=== PATIENT | male | born 1960 | race Caucasian/White ===

== ENCOUNTER 2018-12-14 08:01 | Day surgery (SDC) | payer OTHER ==
[2018-12-09 10:44] VITALS: BMI 29.0
[2018-12-14] MEDS: CIPROFLOXACIN 0.3% EYE DROPS 5 ML BOTTLE ONE ×3 (08:35→08:45)
[2018-12-14] MEDS: PHENYLEPHRINE 2.5% OPHTH SOLN 15 ML BOTTLE ONE ×3 (08:35→08:45)
[2018-12-14] MEDS: TROPICAMIDE 1% OPHTH SOLN 15 ML BOTTLE ONE ×3 (08:35→08:45)
[2018-12-14] MEDS: CYCLOPENTOLATE 2% OPHTH SOLN 2 ML BOTTLE ONE ×3 (08:35→08:45)
[2018-12-14] MEDS ORDERED: MIDAZOLAM HCL 2 MG/2 ML SINGLE DOSE VIAL ONE ×3 (09:38→09:53)
[2018-12-14] MEDS ORDERED: CARBACHOL 0.01% INTRA-OCULAR 1.5 ML VIAL ONE (09:40)
[2018-12-14] MEDS ORDERED: BSS (NA/CA/MG/K) BALANCED SALT SOLUTION OPHTH SOLN 15 ML BOTTLE ONE (09:40)
[2018-12-14] MEDS ORDERED: NEO/POLYMYX B SULF/DEXAMETH OPHTHALMIC 5ML BOTTLE ONE (09:40)
[2018-12-14] MEDS ORDERED: PROPOFOL 20 ML ONE (09:53)
[2018-12-14 10:29] VITALS: TEMP 97.6
--- NOTE | 2018-12-14 11:14 | OP ---
DATE OF OPERATION: 12/14/2018 OPERATIVE PROCEDURE: Lens Phacoemulsification with Posterior Chamber Intraocular Lens Placement, Right Eye PREOPERATIVE DIAGNOSIS: Visually Significant Cataract of Right Eye POSTOPERATIVE DIAGNOSIS: Visually Significant Cataract of Right Eye SURGEON: Jeferson Hansen M.D. ANESTHESIA: MAC PROCEDURE: The patient was brought to the operating room and placed under monitored anesthesia care by Anesthesia. A drop of Tetracaine was then placed over the right eye. The patient was then prepped and draped in the usual sterile manner. A speculum was then placed over the right eye. The eye was then well irrigated with copious amounts of BSS (balanced salt solution). The operating microscope was then moved into position. A paracentesis was performed using a 15 degree blade. At this point 0.5 mL of 1% preservative free-lidocaine was injected into the anterior chamber. Amvisc plus was then injected into the anterior chamber. A clear corneal incision was then formed using a 2.2 mm keratome. A capsulorrhexis was then performed in a continuous circular fashion beginning with a cystotome completed with an Utratas forceps. Hydrodissection was then performed using BSS on a cannula. The phaco probe was then introduced through the corneal wound and the cataract was removed using the phaco chop technique. Approximately 3 seconds of absolute phaco time was used. The remaining cortex was then removed using irrigation and aspiration with an I/A probe. The capsule was then filled with regular Amvisc and the capsule was noted to be intact. A previously selected foldable posterior chamber intraocular lens was then injected into the capsule through the corneal wound using a lens injector. It was then dialed into position using a Sinskey hook. The Amvisc was then removed using irrigation and aspiration. Miostat was then injected through the paracentesis to constrict the pupil. The paracentesis and corneal wound were then hydrated and noted to be water tight. A drop of Maxitrol was then placed over the eye. The speculum was removed and clear shield was taped over the eye. The patient tolerated the procedure well and there were no surgical complications. The patient was asked to follow up in my office the next day. JEFERSON HANSEN M.D. [id number]
[2018-12-14 11:21] VITALS: BP 121/77; PULSE 55
== END 2018-12-14 11:15 | disposition home or self-care (01) ==
LOC: FASU 08:01
PROVIDERS: ATTEND Ophthalmology
PROC: 08RJ3JZ Replacement of Right Lens with Synthetic Substitute, Percutaneous Approach (ICD-10-PCS; principal; 2018-12-14 10:00)
DX: H26.8 Other specified cataract (principal)

== ENCOUNTER 2020-02-07 11:53 | Emergency (ER) | payer OTHER ==
--- NOTE | 2020-02-07 11:57 | PDOC ---
History of Present Illness - General Chief Complaint: Chest Pain Stated Complaint: INTERMITTENT CHEST PAIN OVER 18 HOURS Time Seen by Provider: 02/07/20 11:56 History Source: Patient Exam Limitations: No Limitations - History of Present Illness Initial Comments: 02/07/20 11:56 HPI 59 YOM with h/o HTN, back pain s/p L5-S1 disk replacement, anxiety presenting with intermittent chest pain since yesterday afternoon. Pt describes intermittent left sided chest pain, like "pulling" sensation, nonoexertional and lasts only several seconds. Pt also had fleeting right jaw pain, also fleeting unsure if related to the chest pain. He states he has been feeling "lightheadedness" and noted his heart rate has been slow in the 50s. Pt states he is on losartan and verapamil for HTN management for almost 30 years; recently started on clonidine patch about 4-5 weeks ago, and the dose was titrated up from 0.2 to 0.5mg most recently about 3 weeks ago. currently no chest pain Denies fever, chills, SOB, palpitation, dizziness, weakness, N, V, D, abdominal pain, bladder and bowel problems, focal weakness/paresthesias, leg swelling/pain, rash. Allergies: None Past Medical History/PSH: as above Social history: Lives with family. No tobacco, ETOH or drug use. Meds: as documented in EMR Family history: noncontributory PMD: Dr Rodríguez Review of systems Constitutional: no fevers or chills. No weakness HEENT: no headache or dizziness. No congestion. No visual/hearing disturbances. CVS: no syncope. +chest pain Resp: no sob. No cough. Gastrointestinal: no abdominal pain, nausea, vomiting, diarrhea. MUSCULOSKELETAL: No joint pain and swelling. No neck or back pain. SKIN: no redness or skin changes, no discharge, no rash. No wounds. Hematologic: no easy bruising/bleeding. NEUROLOGIC: No headache, dizziness, LOC or altered mental status. No weakness, numbness or tingling. Psych: no anxiety or depression Allergic/Immunologic: no allergies All other systems reviewed and negative, or as documented in HPI. Physical exam General: Well appearing, awake and alert, NAD. HEENT: NCAT, PERRL, EOMI, clear conjunctiva, anicteric, moist mucus membranes, clear oropharynx, no oral lesions.. Neck: neck supple, FROM Resp: CTAB, normal and even respirations, no respiratory distress CVS: +bradycardic, no murmurs, 2+ peripheral pulses throughout, no peripheral edema Abdomen: soft, NTND, no rebound or guarding. Back: nontender, normal inspection and ROM MSK: no edema, FOFANA x4, ROM intact. No clubbing or cyanosis. normal bulk and tone. Extremities: no calf tenderness Neuro: alert, oriented appropriately; no focal neurologic deficits Psych: Calm and cooperative, mildly anxious Skin: warm and well perfused, cap refill <2 sec, normal color, no rash or skin discoloration. 02/07/20 12:33 Past History - Medical History Allergies/Adverse Reactions: Allergies Allergy/AdvReac Type Severity Reaction Status Date / Time No Known Allergies Allergy Verified 02/07/20 12:14 Home Medications: Ambulatory Orders Verapamil HCl ER [Calan Sr -] 240 mg PO DAILY 06/25/11 Verapamil HCl [Verapamil ER] 180 mg PO HS 12/09/18 Alprazolam [Xanax] 0.5 mg PO PRN 02/07/20 Clonidine Patch [Catapres Tts Patch -] 0.1 mg TD WEEKLY 02/07/20 Losartan Potassium 50 mg PO DAILY 02/07/20 Anemia: No Asthma: No Cancer: No Cardiac Disorders: No CVA: No COPD: No CHF: No Dementia: No Diabetes: No GI Disorders: No Disorders: Yes (ERECTILE DYSFUNCTION) HTN: Yes Hypercholesterolemia: Yes Liver Disease: No Psychiatric Problems: Yes Seizures: No Thyroid Disease: No - Surgical History Abdominal Surgery: No Appendectomy: No Cardiac Surgery: No Cholecystectomy: No Lung Surgery: No Neurologic Surgery: No Orthopedic Surgery: Yes (L5-S1 LAMINECTOMY 2003) - Immunization History Td Vaccination: Yes TDAP Vaccination: Yes Immunization Up to Date: Yes - Psycho-Social/Smoking History Smoking Status: No Smoking History: Never smoked Have you smoked in the past 12 months: No Number of Cigarettes Smoked Daily: 0 Cardiac Specific PMH - Complaint Specific PMHX Pacemaker: No *Physical Exam - Vital Signs Last Vital Signs Temp Pulse Resp BP Pulse Ox 98.4 F 52 L 16 135/85 99 02/07/20 11:54 02/07/20 12:53 02/07/20 12:53 02/07/20 12:13 02/07/20 12:53 Heart Score/ECG Review - History History: Slightly suspicious - Electrocardiogram EKG: Normal - Age Age: 45-65 - Risk Factors Risk Factors Heart Score: Yes Hx Hypertension Based on the list above the patient has:: 1-2 risk factors - Troponin Troponin: </= normal limit - Score Heart Score - Total: 2 #1 ECG reviewed & interpreted by me at: 11:55 General ECG Interpretation: Sinus Rhythm, Normal Intervals 02/07/20 11:56 EKG sinus bradycardia 52 bpm, no interval abnormalities, narrow QRS, ST and T wave segments and morphology normal. ED Treatment Course - LABORATORY CBC & Chemistry Diagram: 02/07/20 12:29 02/07/20 12:29 - ADDITIONAL ORDERS Additional order review: Laboratory Results 02/07/20 02/07/20 12:29 12:29 Sodium 138 Potassium 3.8 Chloride 105 Carbon Dioxide 26 Anion Gap 7 L BUN 19.0 H Creatinine 0.9 Est GFR (CKD-EPI)AfAm 107.97 Est GFR (CKD-EPI)NonAf 93.16 Random Glucose 92 Calcium 8.8 Total Bilirubin 0.7 AST 15 ALT 24 Alkaline Phosphatase 83 Creatine Kinase 78 Troponin I < 0.03 Total Protein 6.7 Albumin 3.8 02/07/20 12:29 RBC 4.42 MCV 91.0 MCHC 33.8 RDW 12.4 MPV 9.8 Neutrophils % 72.2 Lymphocytes % 19.4 Monocytes % 6.4 Eosinophils % 1.4 Basophils % 0.6 - RADIOLOGY Radiology Studies Ordered: Category Date Time Status CHEST PA & LAT [RAD] Stat Radiology 02/07/20 12:22 Completed Medical Decision Making - Medical Decision Making 02/07/20 12:36 Vital Signs Temp Pulse Resp BP Pulse Ox 98.4 F 56 L 18 135/85 100 02/07/20 11:54 02/07/20 12:13 02/07/20 11:54 02/07/20 12:13 02/07/20 11:54 DDx chest pain: ACS, coronary vasospasm, NSTEMI, arrhythmia, unstable angina, PE, dissection, PUD, esophageal spasm, GERD, gastritis, costochondritis, pneum onia, pleurisy, pericarditis/myocarditis. dehydration, electrolyte/metabolic derangements, anxiety. Considered but clinically doubt based on HPI and PE: Low suspicion for pulmonary embolism or dissection. Interpreted by ED Physician: CXR (2 view): no acute abnormality: no infiltrates, bones appear intact and structures normal alignment, cardiac silhouette within normal limits. no free air under diaphragm, no pneumothorax. EKG normal sinus rhythm with bradycardia, no interval abnormalities, narrow QRS, ST and T wave segments and morphology normal. Chest pain HEART score 2 which denotes, Low risk and probability for ACS, less than 1.7% risk for MACE at 4-6 wks most likely polypharmacy effect, is on clonidine and verapamil that can cause bradycardia no high risk sx. no syncope or neuro changes, no HD instability, no AMS. no e/o shock. no symptoms currently, no cp or sob. labs and lytes wnl, neg trop, reassuring VS remain wnl, HD appropriate. no events on monitor, no dysrhythmias, has shown sinus bradycardic and remains asymptomatic. likely the medication effects of alpha 2 agonist (clonidine newest medication PMD gave to control BP) and CCB. No evidence of ACS, pericarditis, myocarditis, pulmonary embolism, pneumothorax, pneumonia, Zoster, or esophageal perforation. Historically not abrupt in onset, tearing or ripping, pulses symmetric, no evidence of aortic dissection. 02/07/20 13:10 Pt to be discharged in stable condition. Patient made aware of clinical impression, treatment recommendations and disposition plan, return precautions discussed (including but not limited to new or persistent/worsening symptoms, pain, fevers, or signs of infection, chest pain, respiratory distress, inability to tolerate oral intake, dehydration, syncope, or neurologic changes). Follow up with PMD and/or cards specialist as recommended, follow up information provided, take medications as instructed for duration of time. continue with supportive care, avoid triggers and precipitants. All questions answered to patient's satisfaction and expressed understanding and comfort with this. At the time of discharge, the patient is alert, clinically improved, tolerating po and verbalizes understanding of instructions, satisfied with the care received and felt comfortable with the plan. Patient does not suffer from an acute life- threatening medical condition at this time and is safe for outpatient follow- up. 02/07/20 13:13 02/07/20 13:14 02/07/20 13:14 Discharge - Discharge Information Problems reviewed: Yes Clinical Impression/Diagnosis: Chest pain, Medication side effect, Bradycardia Condition: Stable Disposition: HOME - Admission No - Follow up/Referral Referrals: Maximo Rodríguez MD [Primary Care Provider] - Eduardo Heath MD [Staff Physician] - Moreno Almaraz MD [Staff Physician] - - Patient Discharge Instructions Patient Printed Discharge Instructions: DI for Chest Pain Additional Instructions: 1) Please follow-up with your primary care doctor in the next 1-2 days. Please call tomorrow for for any urgent issues. cardiology referrals have been given as well 2) You were given a copy of the tests performed today. Please bring the results with you and review them with your primary care doctor. Your laboratory / imaging results were normal, you have a low heart rate that could be related to multiple medications you are taking for your blood pressure 3) If you have any worsening of symptoms or any other concerns please return to the ED immediately. Return if worsening symptoms including fevers, headache, vomiting, visual or hearing disturbances, abdominal pain, chest pain, shortness of breath, syncope, dehydration, inability to take things by mouth/vomiting, altered mental status, or worsening concerning symptoms. 4) Please continue taking your home medications as directed. diet and exercise are also appropriate modifications to control your blood pressure Stay well hydrated and rest adequately. Make an appointment. If you cannot follow-up with your primary care doctor please return to the ED - Post Discharge Activity
[2020-02-07 12:27] VITALS: BP 135/85; TEMP 98.4; BMI 27.8
[2020-02-07 12:53] VITALS: PULSE 52
[2020-02-07 12:57] LABS: BASO % 0.6 % (0-2.0); EOS % 1.4 % (0-4.5); HEMATOCRIT 40.2 % (35.4-49); HEMOGLOBIN 13.6 GM/dl (11.7-16.9); LYMPH % 19.4 % (8-40); MCH 30.8 pg (25.7-33.7); MCHC 33.8 g/dl (32.0-35.9); MEAN PLT VOLUME 9.8 fl (7.5-11.1); MONO % 6.4 % (3.8-10.2); NEUT % 72.2 % (42.8-82.8); PLATELET COUNT 233 K/MM3 (134-434); RBC 4.42 M/mm3 (4.00-5.60); RDW 12.4 % (11.9-15.9); WHITE BLOOD COUNT 7.5 K/mm3 (4.0-10.8)
[2020-02-07 13:00] LABS: ALBUMIN 3.8 g/dl (3.4-5.0); BILIRUBIN,TOTAL 0.7 mg/dl (0.2-1); CALCIUM 8.8 mg/dl (8.5-10); CREATININE 0.9 mg/dl (0.55-1.3); POTASSIUM 3.8 mmol/L (3.5-5.1); TOT PROT 6.7 g/dl (6.4-8.2)
--- NOTE | 2020-02-08 15:30 | EKG ---
Test Reason : Blood Pressure : / mmHG Vent. Rate : 052 BPM Atrial Rate : 052 BPM P-R Int : 176 ms QRS Dur : 088 ms QT Int : 454 ms P-R-T Axes : 020 008 032 degrees QTc Int : 422 ms SINUS BRADYCARDIA OTHERWISE NORMAL ECG WHEN COMPARED WITH ECG OF 01-JUL-2004 20:24, NO SIGNIFICANT CHANGE WAS FOUND Confirmed by BALBINA FONSECA MD ([id number]) on 02/08/2020 3:29:23 PM Referred By: CHRISSIE FERNANDEZ Confirmed By:BALBINA FONSECA MD
== END 2020-02-07 13:27 | disposition home or self-care (01) ==
LOC: FER 11:53
DX: R07.9 Chest pain, unspecified (principal)
CPT/HCPCS: 36415; 71046-TC-FY; 80053; 82550; 84484; 85025; 93005; 99285-25; U0003

== ENCOUNTER 2020-02-15 12:52 | Emergency (ER) | payer OTHER ==
[2020-02-15] MEDS ORDERED: morphine CARPU-JECT 4 MG/1 ML DISP.SYRIN IVPUSH ONE ×2 (13:13→15:27)
[2020-02-15] MEDS ORDERED: SODIUM CHLORIDE 0.9% 1000 ML INFUS.BAG IV ONE (13:13)
[2020-02-15 13:25] VITALS: BP 122/72; PULSE 65; TEMP 98.2; BMI 23.1
[2020-02-15] MEDS ORDERED: ACETAMINOPHEN INJECTION 100 ML IVPB ONE (13:33)
[2020-02-15] MEDS ORDERED: ACETAMINOPHEN 1000 MG/100 ML VIAL (NON FORMULARY) IVPB ONE (13:33)
[2020-02-15 13:44] LABS: BASO % 0.3 % (0-2.0); EOS % 0.1 % (0-4.5); HEMATOCRIT 43.6 % (35.4-49); HEMOGLOBIN 14.8 GM/dl (11.7-16.9); LYMPH % 10.5 % (8-40); MCH 30.5 pg (25.7-33.7); MCHC 33.9 g/dl (32.0-35.9); MEAN PLT VOLUME 9.1 fl (7.5-11.1); MONO % 3.3 % (3.8-10.2); NEUT % 85.8 % (42.8-82.8); PLATELET COUNT 290 K/MM3 (134-434); RBC 4.84 M/mm3 (4.00-5.60); RDW 12.2 % (11.9-15.9); WHITE BLOOD COUNT 13.7 K/mm3 (4.0-10.8)
[2020-02-15 13:52] LABS: ALBUMIN 4.3 g/dl (3.4-5.0); BILIRUBIN,TOTAL 0.8 mg/dl (0.2-1); CREATININE 0.9 mg/dl (0.55-1.3); POTASSIUM 3.5 mmol/L (3.5-5.1); TOT PROT 7.7 g/dl (6.4-8.2)
[2020-02-15 13:54] LABS: INR 1.12 (0.82-1.09); PROTHROMBIN TIME (PATIENT) 12.5 SEC (10.2-13.0)
--- NOTE | 2020-02-15 13:59 | PDOC ---
History of Present Illness - General Chief Complaint: Pain Stated Complaint: LEFT ABD PAIN Time Seen by Provider: 02/15/20 12:56 History Source: Patient Exam Limitations: No Limitations - History of Present Illness Initial Comments: 02/15/20 13:56 59-year-old male history of hypertension anxiety here today complaining of constipation for the last few days. Patient states he did try a laxative with minimal relief and then tried an enema last night following the enema he noticed some one loose stool with red particles he was unsure if it was blood or food particles now complaining of left-sided abdominal pain. Denies any nausea no fevers no chills no known history of diverticulitis no urinary complaints no history of similar symptoms in the past patient is states pain is constant but does have waves where it slightly worse Past History - Medical History Allergies/Adverse Reactions: Allergies Allergy/AdvReac Type Severity Reaction Status Date / Time No Known Allergies Allergy Verified 02/15/20 12:53 Home Medications: Ambulatory Orders Verapamil HCl ER [Calan Sr -] 240 mg PO DAILY 06/25/11 Verapamil HCl [Verapamil ER] 180 mg PO HS 12/09/18 Alprazolam [Xanax] 0.5 mg PO PRN 02/07/20 Clonidine Patch [Catapres Tts Patch -] 0.1 mg TD WEEKLY 02/07/20 Losartan Potassium 50 mg PO DAILY 02/07/20 Ciprofloxacin [Cipro -] 500 mg PO Q12H #14 tablet 02/15/20 metroNIDAZOLE [Flagyl -] 500 mg PO TID #7 tablet MDD 3 02/15/20 Oxycodone HCl [Roxicodone] 5 mg PO BID PRN #4 tablet MDD 2 02/18/20 Anemia: No Asthma: No Cancer: No Cardiac Disorders: No CVA: No COPD: No CHF: No Dementia: No Diabetes: No GI Disorders: No Disorders: Yes (ERECTILE DYSFUNCTION) HTN: Yes Hypercholesterolemia: Yes Liver Disease: No Psychiatric Problems: Yes Seizures: No Thyroid Disease: No Other medical history: ANXIETY - Surgical History Abdominal Surgery: No Appendectomy: No Cardiac Surgery: No Cholecystectomy: No Lung Surgery: No Neurologic Surgery: No Orthopedic Surgery: Yes (L5-S1 LAMINECTOMY 2003) - Immunization History Td Vaccination: Yes TDAP Vaccination: Yes Immunization Up to Date: Yes - Psycho-Social/Smoking History Smoking Status: No Smoking History: Never smoked Have you smoked in the past 12 months: No Number of Cigarettes Smoked Daily: 0 Information on smoking cessation initiated: No - Substance Abuse Hx (Audit-C & DAST Scrn) How often the patient has a drink containing alcohol: Never Score: In Men: 4 or > Positive; In Women: 3 or > Positive: 0 Screen Result (Pos requires Nsg. Audit-10AR): Negative In the last yr the pt used illegal drug/Rx for NonMed reason: No Score: Yes response is considered Positive: 0 Screen Result (Positive result requires Nsg. DAST-10): Negative Review of Systems - Review of Systems Constitutional: No: Diaphoresis, Fever HEENTM: No: Eye Pain Respiratory: No: Cough, Shortness of Breath Cardiac (ROS): No: Chest Pain ABD/GI: Yes: Constipated, Diarrhea, Nausea, Abdominal cramping : No: Burning, Dysuria, Discharge Musculoskeletal: No: Back Pain, Joint Pain All Other Systems: Reviewed and Negative *Physical Exam - Vital Signs Last Vital Signs Temp Pulse Resp BP Pulse Ox 98.2 F 65 20 122/72 98 02/15/20 12:52 02/15/20 12:52 02/15/20 12:52 02/15/20 12:52 02/15/20 12:52 - Physical Exam 02/15/20 13:58 Awake alert no acute distress lungs are clear bilaterally heart is regular 30 murmurs rubs or gallops abdomen is soft there is left mid quadrant tenderness no rebound or guarding no CVA tenderness. Rectal exam palpable internal hemorrhoids there is some blood mucus no stool noted in the vault extremities are warm well perfused neurologically patient is awake alert and oriented x3 ED Treatment Course - LABORATORY CBC & Chemistry Diagram: 02/15/20 13:25 02/15/20 13:25 - ADDITIONAL ORDERS Additional order review: Laboratory Results 02/15/20 02/15/20 02/15/20 13:25 13:25 13:25 Sodium 133 L Potassium 3.5 Chloride 100 Carbon Dioxide 25 Anion Gap 8 BUN 15.0 Creatinine 0.9 Est GFR (CKD-EPI)AfAm 107.97 Est GFR (CKD-EPI)NonAf 93.16 Random Glucose 121 H Calcium 9.0 Total Bilirubin 0.8 AST 18 ALT 19 Alkaline Phosphatase 89 Total Protein 7.7 Albumin 4.3 Urine Color Yellow Urine Appearance Clear Urine pH 5.5 Urine Protein Negative Urine Glucose (UA) Negative Urine Ketones Negative Urine Blood Trace-intact Urine Nitrite Negative Urine Bilirubin Negative Urine Urobilinogen 0.2 Ur Leukocyte Esterase Negative Stool Occult Blood Negative 02/15/20 13:25 RBC 4.84 MCV 90.0 MCHC 33.9 RDW 12.2 MPV 9.1 Neutrophils % 85.8 H Lymphocytes % 10.5 D Monocytes % 3.3 L Eosinophils % 0.1 D Basophils % 0.3 - RADIOLOGY Radiology Studies Ordered: Category Date Time Status ABDOMEN & PELVIS CT WITH CONTR [CT] Stat CT Scan 02/15/20 13:13 Ordered - Medications Given in the ED: ED Medications Discontinued Medications Generic Name Dose Route Start Last Admin Trade Name Carolyn PRN Reason Stop Dose Admin Acetaminophen 1,000 mg 02/15/20 13:33 02/15/20 13:36 Ofirmev Injection - IVPB 02/15/20 13:34 1,000 mg ONCE ONE Administration Sodium Chloride 1,000 ml 02/15/20 13:13 02/15/20 13:36 Normal Saline - IV 02/15/20 13:14 1,000 ml ONCE ONE Administration Medical Decision Making - Medical Decision Making 02/15/20 13:58 59-year-old male history of hypertension anxiety here today complaining of few days of constipation now with blood mixed with stool following an enema and left-sided lower quadrant pain. Differential includes colitis, internal hemorrhoids, diverticulitis diverticulosis plan CT abdomen pelvis basic labs IV fluids Tylenol for pain control UA to rule out UTI or pyelonephritis Discharge - Discharge Information Problems reviewed: Yes Clinical Impression/Diagnosis: Colitis Condition: Improved Disposition: HOME - Admission No - Additional Discharge Information Prescriptions: Ciprofloxacin [Cipro -] 500 mg PO Q12H #14 tablet metroNIDAZOLE [Flagyl -] 500 mg PO TID #7 tablet MDD 3 - Follow up/Referral Referrals: Carlos Arriaza MD [Staff Physician] - - Patient Discharge Instructions Patient Printed Discharge Instructions: DI for Colitis Additional Instructions: Jonelo your CAT scan today shows acute colitis or inflammation of the colon. This is possibly related to bacterial versus viral infection we will treat you with an antibiotic called ciprofloxacin 500 mg to be taken twice daily for 1 week in addition you can take Flagyl antibiotic 500 mg 3 times daily for 1 week he should follow-up with Dr. Arriaza a method consultant or your own method consultant if you have 1. See referral information for phone number call to schedule to be seen within 1 week you should also follow-up with your primary care doctor and at the earliest available. Return for vomiting worsening symptoms fevers or any other concerns he should stick to a bland diet liquids initially advancing as your pain is improved - Post Discharge Activity
[2020-02-15 14:19] LABS: EPITHELIAL CELLS RARE /hpf
[2020-02-15] MEDS ORDERED: morphine SULFATE 4 MG/ML VIAL ONE (15:24)
[2020-02-15] MEDS ORDERED: CIPROFLOXACIN 500 MG TABLET (RESTRICTED TO ID) PO ONE (18:02)
[2020-02-15] MEDS ORDERED: metroNIDAZOLE 250 MG TABLET PO ONE (18:02)
[2020-02-15] MEDS ORDERED: metroNIDAZOLE 250 MG TABLET ONE (18:05)
[2020-02-15] MEDS ORDERED: CIPROFLOXACIN 250 MG TABLET (RESTRICTED TO ID) PO ONE (18:05)
== END 2020-02-15 18:22 | disposition home or self-care (01) ==
LOC: FER 12:52
PROC: 3E033NZ Introduction of Analgesics, Hypnotics, Sedatives into Peripheral Vein, Percutaneous Approach (ICD-10-PCS; principal; 2020-02-15)
PROC: 3E033GC Introduction of Other Therapeutic Substance into Peripheral Vein, Percutaneous Approach (ICD-10-PCS; 2020-02-15)
DX: K52.9 Noninfective gastroenteritis and colitis, unspecified (principal)
CPT/HCPCS: 36415; 74177-TC; 80053; 81003; 81015; 82272; 85025; 85610; 85730; 99285-25; J0131; Q9967

== ENCOUNTER 2020-02-18 02:10 | Emergency (ER) | payer OTHER ==
[2020-02-18 02:19] VITALS: BP 124/89; PULSE 74; TEMP 99.1; BMI 23.1
[2020-02-18] MEDS ORDERED: KETOROLAC TROMETHAMINE 30 MG/1 ML VIAL IM ONE (02:29)
[2020-02-18] MEDS ORDERED: ACETAMINOPHEN 500 MG TABLET (FP) PO ONE (02:31)
[2020-02-18] MEDS ORDERED: KETOROLAC TROMETHAMINE 30 MG/1 ML VIAL ONE (02:32)
[2020-02-18] MEDS ORDERED: ACETAMINOPHEN 325 MG TABLET (FP) ONE (02:32)
--- NOTE | 2020-02-18 02:38 | PDOC ---
History of Present Illness - General Chief Complaint: Pain, Acute Stated Complaint: ABD PAIN Time Seen by Provider: 02/18/20 02:19 History Source: Patient Exam Limitations: No Limitations - History of Present Illness Initial Comments: 02/18/20 02:31 [id number] with h/o HTN, anxiety, and recently diagnosed transverse colitis (ED visit on 02/15/20) for which he has been taking his antibiotics exactly as prescribed, who p/w continued LUQ pain which he notes is persisting at the same intensity as his prior visit, kept him from sleeping tonight. Denies any f/c/n/v/d, small amount of constipation but still having small BMs and passing gas, has not been eating a large amount of food. He requests stronger pain medication to get him through the weekend. He has tried Tylenol at home but no Motrin. Past History - Medical History Allergies/Adverse Reactions: Allergies Allergy/AdvReac Type Severity Reaction Status Date / Time No Known Allergies Allergy Verified 02/15/20 12:53 Home Medications: Ambulatory Orders Verapamil HCl ER [Calan Sr -] 240 mg PO DAILY 06/25/11 Verapamil HCl [Verapamil ER] 180 mg PO HS 12/09/18 Alprazolam [Xanax] 0.5 mg PO PRN 02/07/20 Clonidine Patch [Catapres Tts Patch -] 0.1 mg TD WEEKLY 02/07/20 Losartan Potassium 50 mg PO DAILY 02/07/20 Ciprofloxacin [Cipro -] 500 mg PO Q12H #14 tablet 02/15/20 metroNIDAZOLE [Flagyl -] 500 mg PO TID #7 tablet MDD 3 02/15/20 Oxycodone HCl [Roxicodone] 5 mg PO BID PRN #4 tablet MDD 2 02/18/20 Anemia: No Asthma: No Cancer: No Cardiac Disorders: No CVA: No COPD: No CHF: No Dementia: No Diabetes: No GI Disorders: Yes (COLITIS) Disorders: Yes (ERECTILE DYSFUNCTION) HTN: Yes Hypercholesterolemia: Yes Liver Disease: No Psychiatric Problems: Yes Seizures: No Thyroid Disease: No - Surgical History Abdominal Surgery: No Appendectomy: No Cardiac Surgery: No Cholecystectomy: No Lung Surgery: No Neurologic Surgery: No Orthopedic Surgery: Yes (L5-S1 LAMINECTOMY 2003) - Immunization History Td Vaccination: Yes TDAP Vaccination: Yes Immunization Up to Date: Yes - Psycho-Social/Smoking History Smoking Status: No Smoking History: Never smoked Have you smoked in the past 12 months: No Number of Cigarettes Smoked Daily: 0 Review of Systems - Review of Systems Able to Perform ROS?: Yes Comments:: 02/18/20 02:43 GEN: no fever, chills, malaise, or generalized weakness HEENT: no ear pain, congestion, sore throat, vision change, or eye pain CV: no chest pain, palpitations, lightheadedness, syncope, or edema RESP: no SOB, wheezing, or cough GI: abdominal pain, mild constipation, no nausea, vomiting, diarrhea, or rectal bleed : no dysuria, hematuria, or discharge MSK: no muscle weakness or pain, no joint swelling or pain NEURO: no headache, vertigo, numbness, tingling, or focal weakness PSYCH: no SI, HI, or behavior change SKIN: no jaundice, rash, lesions, or unexplained bruises ROS otherwise negative except as noted in HPI *Physical Exam - Vital Signs Last Vital Signs Temp Pulse Resp BP Pulse Ox 99.1 F 74 18 124/89 99 02/18/20 02:14 02/18/20 02:14 02/18/20 02:14 02/18/20 02:14 02/18/20 02:14 - Physical Exam 02/18/20 02:43 GENERAL: well-appearing, anxious, A/Ox4, no distress, answers questions appropriately HEENT: PERRLA, EOMI, moist mucous membranes NECK/BACK: no midline ttp, no spinal step-off or deformity, no hematoma, full ROM, neck supple CARDIOVASCULAR: regular rate/rhythm, no MGR, strong peripheral pulses, capillary refill <2 seconds, extremities wwp, no edema LUNGS/RESPIRATORY: no respiratory distress, CTAB GI/ABDOMEN: symmetric grms-bp-oali, normoactive BS, soft, mild LUQ ttp without guarding or rebound, no midline pulsatile masses, normoactive bowel sounds : no CVA tenderness MSK/EXTREMITIES: no muscle atrophy, no acute deformity SKIN: warm and dry, no pallor, no jaundice, no rash, no pathologic-appearing br uising, no skin breakdown, no cuts, no lesions NEUROLOGICAL: GCS 15, CN II-XII grossly intact, 5/5 strength proximally and distally, no facial droop Medical Decision Making - Medical Decision Making 02/18/20 02:44 [id number] with recently diagnosed colitis now on abx and taking them adherently, who p/w persistent LUQ abdominal pain with mild constipation, without any systemic symptoms (no f/c/n/v, diarrhea, back pain, or other symptoms). States he is here because the pain has kept him from sleeping tonight, requests something stronger than Tylenol. Unfortunately he drove himself, but I inform him we can give Tylenol and IM Toradol here, and give him a clear regimen for Tylenol and Motrin at home, then send him a few pills of oxycodone to his pharmacy in case he needs it today and tomorrow. He is agreeable and will continue to take the abx exactly as prescribed, will come back for any new or worsening symptoms especially worsening pain or change in character of the pain, or f/c/n/v. Repeat exam is benign with pain well controlled after Tylenol and Toradol, and he is appropriate for discharge home. Referral info for GI given. Discharge - Discharge Information Problems reviewed: Yes Clinical Impression/Diagnosis: Colitis Condition: Stable Disposition: HOME - Admission No - Additional Discharge Information Prescriptions: Oxycodone HCl [Roxicodone] 5 mg PO BID PRN #4 tablet MDD 2 PRN Reason: Pain Level 4 - 6 - Follow up/Referral Referrals: Maximo Rodríguez MD [Primary Care Provider] - Kushal Stinson MD [Staff Physician] - - Patient Discharge Instructions Patient Printed Discharge Instructions: DI for Colitis Additional Instructions: You were seen in the ER for pain from your colitis. We gave you pain medications in the ER which did help. 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 Please follow up with your regular PCP on Wednesday. Call their clinic, tell them you were seen in the ER, and tell them you need a follow-up. You also likely need a follow-up colonoscopy after the symptoms have resolved, in 6-8 weeks, and you should call a application coordinator now to set up this appointment. For the next 48 hours, you should be on a clear-liquids diet (water, electrolyte drinks, broth, etc.). After that, go on a BRAT diet (bananas, rice, applesauce, toast) for the following 48 hours, then slowly reintroduce normal foods as you are able. If you have any new or worsening symptoms, please come back to the ER at any time (24 hours a day). Especially come back for large amounts of rectal bleeding, worsening pain, or worsening fever, vomiting, inability to keep down liquids, dehydration, fainting, or other concerning emergency symptoms. If you are having severe or life threatening symptoms, or symptoms that make it unsafe to drive or have someone drive you, please call 911. Tylenol/Motrin Regimen: When you wake up in the morning, take Tylenol 650 mg. 3 hours after that, take Motrin 600 mg. 3 hours after that, take Tylenol 650 mg. 3 hours after that, take Motrin 600 mg. Etc. - Post Discharge Activity
== END 2020-02-18 02:54 | disposition home or self-care (01) ==
LOC: FER 02:10
PROC: 3E0233Z Introduction of Anti-inflammatory into Muscle, Percutaneous Approach (ICD-10-PCS; principal; 2020-02-18)
DX: K59.2 Neurogenic bowel, not elsewhere classified (principal)
CPT/HCPCS: 99284-25

== ENCOUNTER 2021-06-07 12:38 | Emergency (ER) | payer OTHER ==
[2021-06-07] MEDS ORDERED: MECLIZINE HCL 25 MG TABLET (FP) PO ONE (13:42)
[2021-06-07 13:48] LABS: ALBUMIN 3.9 g/dl (3.4-5.0); BILIRUBIN,TOTAL 0.4 mg/dl (0.2-1); CALCIUM 9.3 mg/dl (8.5-10); TOT PROT 6.7 g/dl (6.4-8.2)
[2021-06-07] MEDS ORDERED: MECLIZINE HCL 25 MG TABLET (FP) ONE (13:55)
[2021-06-07 15:05] LABS: BASO % 0.9 % (0-2.0); EOS % 2.3 % (0-4.5); HEMOGLOBIN 13.8 GM/dL (11.7-16.9); LYMPH % 23.8 % (8-40); MCH 29.1 pg (25.7-33.7); MCHC 32.8 g/dl (32.0-35.9); MEAN CELL VOLUME 88.6 fl (80-96); MEAN PLT VOLUME 9.8 fl (7.5-11.1); MONO % 7.3 % (3.8-10.2); NEUT % 65.7 % (42.8-82.8); PLATELET COUNT 240 10^3/uL (134-434); RBC 4.74 M/mm3 (4.00-5.60)
[2021-06-09 17:08] LABS: SARS-CoV-2 NAA Not Detected (Not Detected)
== END 2021-06-07 16:25 | disposition home or self-care (01) ==
LOC: FER 12:38
DX: R42 Dizziness and giddiness (principal)
CPT/HCPCS: 36415; 80053; 84484; 85025; 93005; 99281-25; C9803; U0003; U0005

== ENCOUNTER 2021-11-01 05:25 | Emergency (ER) | payer OTHER ==
[2021-11-01 05:41] VITALS: BMI 26.9
[2021-11-01] MEDS ORDERED: SODIUM CHLORIDE 1,000 ML IV ONE (05:54)
[2021-11-01] MEDS ORDERED: morphine CARPU-JECT 2 MG/1 ML DISP.SYRIN IVPUSH ONE (05:54)
[2021-11-01] MEDS ORDERED: morphine SULFATE 4 MG/ML VIAL ONE (05:59)
[2021-11-01 07:01] LABS: BASO % 1.1 % (0-2.0); HEMOGLOBIN 13.9 GM/dL (11.7-16.9); LYMPH % 28.5 % (8-40); MCH 30.6 pg (25.7-33.7); MCHC 34.8 g/dl (32.0-35.9); MEAN CELL VOLUME 87.9 fl (80-96); MEAN PLT VOLUME 9.4 fl (7.5-11.1); MONO % 6.2 % (3.8-10.2); NEUT % 61.2 % (42.8-82.8); PLATELET COUNT 232 10^3/uL (134-434); RBC 4.55 M/mm3 (4.00-5.60); RDW 12.6 % (11.9-15.9); WHITE BLOOD COUNT 7.6 K/mm3 (4.0-10.0)
[2021-11-01 07:02] LABS: URINE APPEARANCE CLEAR; URINE BILIRUBIN NEGATIVE (NEGATIVE); URINE COLOR YELLOW; URINE GLUCOSE (UA) NEGATIVE (NEGATIVE); URINE KETONE NEGATIVE (NEGATIVE); URINE LEUK ESTERASE NEGATIVE (NEGATIVE); URINE NITRITE NEGATIVE (NEGATIVE); URINE PROTEIN NEGATIVE (NEGATIVE); URINE UROBILINOGEN 0.2 mg/dL (0.2-1.0)
[2021-11-01 08:32] LABS: ALBUMIN 3.9 g/dl (3.4-5.0); BILIRUBIN,TOTAL 0.3 mg/dL (0.2-1); BLOOD UREA NITROGEN 14.6 mg/dL (7-18); CHLORIDE 105 mmol/L (98-107); CO2 30 mmol/L (21-32); CREATININE 0.9 mg/dL (0.55-1.3); GLUCOSE,RANDOM 92 mg/dL (74-106); SGOT/AST 25 U/L (15-37); SODIUM 141 mmol/L (136-145)
[2021-11-01 08:33] LABS: ALK PHOS 102 U/L (45-117); SGPT/ALT 56 U/L (13-61)
[2021-11-01 10:44] VITALS: BP 144/88; PULSE 63; TEMP 98.8
== END 2021-11-01 11:10 | disposition home or self-care (01) ==
LOC: FER 05:25
PROC: 3E033NZ Introduction of Analgesics, Hypnotics, Sedatives into Peripheral Vein, Percutaneous Approach (ICD-10-PCS; principal; 2021-11-01)
PROC: 3E0337Z Introduction of Electrolytic and Water Balance Substance into Peripheral Vein, Percutaneous Approach (ICD-10-PCS; 2021-11-01)
DX: R10.32 Left lower quadrant pain (principal)
CPT/HCPCS: 36415; 74177-TC; 80053; 81003; 85025; 99285-25; Q9967

== ENCOUNTER 2021-12-11 02:35 | Emergency (ER) | payer OTHER ==
[2021-12-11 02:50] VITALS: BP 159/97; PULSE 67; TEMP 97.5; BMI 25.9
[2021-12-11 03:48] LABS: BASO % 1.2 % (0-2.0); EOS % 2.7 % (0-4.5); HEMATOCRIT 39.2 % (35.4-49); HEMOGLOBIN 13.6 GM/dL (11.7-16.9); MCH 30.7 pg (25.7-33.7); MCHC 34.8 g/dl (32.0-35.9); MEAN CELL VOLUME 88.3 fl (80-96); MEAN PLT VOLUME 8.8 fl (7.5-11.1); MONO % 6.5 % (3.8-10.2); NEUT % 69.6 % (42.8-82.8); PLATELET COUNT 221 10^3/uL (134-434); RBC 4.44 M/mm3 (4.00-5.60); RDW 13.1 % (11.9-15.9); WHITE BLOOD COUNT 7.7 K/mm3 (4.0-10.0)
[2021-12-11 03:59] LABS: INR 1.01 (0.83-1.09); PROTHROMBIN TIME (PATIENT) 11.6 SEC (9.7-13.0)
[2021-12-11 04:01] LABS: ACTIVATED PTT 27.8 SECONDS (25.2-36.5)
[2021-12-11 04:14] LABS: CALCIUM 8.7 mg/dL (8.5-10.1)
[2021-12-11 04:15] LABS: ALBUMIN 3.9 g/dl (3.4-5.0); BLOOD UREA NITROGEN 15.1 mg/dL (7-18); MAGNESIUM 2.1 mg/dL (1.8-2.4)
[2021-12-11 04:20] LABS: BILIRUBIN,TOTAL 0.4 mg/dL (0.2-1); TOT PROT 7.4 g/dl (6.4-8.2)
[2021-12-11 04:53] LABS: URINE APPEARANCE CLEAR; URINE BILIRUBIN NEGATIVE (NEGATIVE); URINE COLOR YELLOW; URINE GLUCOSE (UA) NEGATIVE (NEGATIVE); URINE KETONE NEGATIVE (NEGATIVE); URINE LEUK ESTERASE NEGATIVE (NEGATIVE); URINE NITRITE NEGATIVE (NEGATIVE); URINE PROTEIN NEGATIVE (NEGATIVE); URINE UROBILINOGEN 0.2 mg/dL (0.2-1.0)
== END 2021-12-11 06:06 | disposition home or self-care (01) ==
LOC: JER 02:35
DX: K59.00 Constipation, unspecified (principal)
CPT/HCPCS: 36415; 71045-TC-FY; 74177-TC; 80053; 81003; 83605; 83690; 83735; 84484; 85025; 85610; 85730; 87086; 93005; 93010; 99284-25; Q9967

== ENCOUNTER 2022-01-30 13:26 | Emergency (ER) | payer OTHER ==
[2022-01-30 13:43] VITALS: RESP 18; TEMP 98.5; BMI 25.4
[2022-01-30 14:47] LABS: ALBUMIN 3.9 g/dl (3.4-5.0); BILIRUBIN,TOTAL 0.7 mg/dl (0.2-1); CALCIUM 9.1 mg/dl (8.5-10); CREATININE 1.2 mg/dl (0.55-1.3); TOT PROT 7.2 g/dl (6.4-8.2)
[2022-01-30 15:12] LABS: HEMATOCRIT 37.9 % (35.4-49); HEMOGLOBIN 13.4 G/dL (11.7-16.9); MCH 31.7 pg (25.7-33.7); MCHC 35.3 g/dl (32.0-35.9); MEAN CELL VOLUME 89.5 fl (80-96); MEAN PLT VOLUME 9.5 fl (7.5-11.1); PLATELET COUNT 227.7 10^3/uL (134-434); RBC 4.23 10^6/uL (4.00-5.60); WHITE BLOOD COUNT 8.3 10^3/uL (4.0-10.8)
[2022-01-30 15:27] LABS: PLATELET ESTIMATE ADEQUATE
[2022-01-30 16:24] VITALS: BP 128/76; PULSE 69
== END 2022-01-30 16:28 | disposition home or self-care (01) ==
LOC: FER 13:26
DX: R07.9 Chest pain, unspecified (principal)
CPT/HCPCS: 36415; 71046-TC-FY; 80053; 84484; 85025; 93005; 99285-25

== ENCOUNTER 2022-07-03 18:30 | Emergency (ER) | payer OTHER ==
[2022-07-03 19:27] VITALS: BP 150/82; PULSE 51; RESP 18; TEMP 97.8; BMI 25.7
== END 2022-07-03 19:40 | disposition home or self-care (01) ==
LOC: FER 18:30
DX: R23.2 Flushing (principal)
CPT/HCPCS: 99281-25

== ENCOUNTER 2023-01-21 16:23 | Emergency (ER) | payer BC, OTHER ==
[2023-01-21 17:04] VITALS: BP 133/84; PULSE 65; RESP 18; TEMP 98.5; BMI 25.7
== END 2023-01-21 19:17 | disposition home or self-care (01) ==
LOC: FER 16:23
DX: K59.00 Constipation, unspecified (principal)
CPT/HCPCS: 74019-TC-FY; 99283-25

== ENCOUNTER 2024-04-19 10:51 | Day surgery (SDC) | payer BC, OTHER ==
[2024-04-14 16:36] VITALS: BMI 25.0
[2024-04-19] MEDS ORDERED: TETRACAINE 0.5% OPHTH SOLN 2 ML BOTTLE ONE (11:14)
[2024-04-19] MEDS ORDERED: CARBACHOL 0.01% INTRA-OCULAR 1.5 ML VIAL ONE (11:14)
[2024-04-19] MEDS ORDERED: BSS (NA/CA/MG/K) BALANCED SALT SOLUTION OPHTH SOLN 15 ML BOTTLE ONE (11:14)
[2024-04-19] MEDS ORDERED: LIDOCAINE 1% P/F 10 MG/ML VIAL ONE (11:14)
[2024-04-19] MEDS ORDERED: NEO/POLYMYX B SULF/DEXAMETH OPHTHALMIC 5ML BOTTLE ONE (11:14)
[2024-04-19] MEDS: CIPROFLOXACIN 0.3% EYE DROPS 5 ML BOTTLE ONE (12:10)
[2024-04-19] MEDS: TROPICAMIDE 1% OPHTH SOLN 15 ML BOTTLE ONE (12:10)
[2024-04-19] MEDS: PHENYLEPHRINE 2.5% OPTHALMIC DROP 2ML BOTTLE ONE (12:10)
[2024-04-19] MEDS: CYCLOPENTOLATE 2% OPHTH SOLN 2 ML BOTTLE ONE (12:10)
[2024-04-19 12:14] VITALS: RESP 16
[2024-04-19] MEDS ORDERED: MIDAZOLAM HCL 2 MG/2 ML SINGLE DOSE VIAL ONE ×2 (13:12→13:19)
[2024-04-19 14:50] VITALS: TEMP 97.3
[2024-04-19 14:53] VITALS: BP 110/64; PULSE 56
== END 2024-04-19 14:20 | disposition home or self-care (01) ==
LOC: FASU 10:51
PROVIDERS: ATTEND Ophthalmology
PROC: 08RK3JZ Replacement of Left Lens with Synthetic Substitute, Percutaneous Approach (ICD-10-PCS; principal; 2024-04-19 13:21)
DX: H26.8 Other specified cataract (principal)
CPT/HCPCS: 66984; V2632